=== PATIENT | male | born 1975 | race Caucasian/White ===

== ENCOUNTER 2018-07-14 18:28 | Emergency (ER) | payer MEDICAID ==
[~2018-07-14] VITALS: Ht 185.4 cm; Wt 148.2 kg
[~2018-07-14 18:28] MED LIST: ASPI-1009 PO; AZIT250T PO; CLOT15CR5 TP; GLIM4TAB79 PO; GUAI120015 PO; HYDR-4383 PO; IPRA3AMP31 IH; LOSA25TA96 PO; METF1000 PO; PIOG15TA8 PO; PRAV20TA60 PO; SITA100T15 PO
[2018-07-14 18:39] VITALS: BP 152/91
[2018-07-14] MEDS ORDERED: metoclopramide 5 mg/ml inj IV ONE (18:55)
[2018-07-14] MEDS ORDERED: normal saline 1000ML IV soln IVB ONE (18:55)
[2018-07-14] MEDS ORDERED: diphenhydrAMINE 50 mg/ml inj IV ONE (18:55)
[2018-07-14 18:59] LABS: BASOPHILS % (AUTO) 0.3 % (0-1); EOSINOPHILS # (AUTO) 0.2 X10'3 (0-0.9); EOSINOPHILS % (AUTO) 2.9 % (0-6); HEMATOCRIT 41.2 % (42.0-52.0); HEMOGLOBIN 13.9 g/dl (14.0-17.9); LYMPHOCYTES % (AUTO) 38.1 % (21-51); MEAN CORPUSCULAR HEMOGLOBIN 29.8 PG (27.0-31.0); MEAN CORPUSCULAR HGB CONC 33.7 % (33.0-36.5); MEAN CORPUSCULAR VOLUME 88.5 FL (78-98); MEAN PLATELET VOLUME 7.7 FL (7.4-10.4); MONOCYTES # (AUTO) 0.4 X10'3 (0-0.9); MONOCYTES % (AUTO) 8.4 % (2-12); NEUTROPHILS # (AUTO) 2.7 X10'3 (1.8-7.7); NEUTROPHILS % (AUTO) 50.3 % (42-75); PLATELET COUNT 237 X10'3 (140-440); RED BLOOD COUNT 4.65 X10'6 (4.70-6.10); RED CELL DISTRIBUTION WIDTH 13.5 % (11.5-14.5); WHITE BLOOD COUNT 5.3 X10'3 (4.5-11.0)
[2018-07-14] MEDS ORDERED: ATOR80TA PO (19:08)
[2018-07-14] MEDS ORDERED: LANTUS SQ (19:08)
[2018-07-14 19:21] LABS: ALANINE AMINOTRANSFERASE 30 U/L (12-78); ALBUMIN 3.9 G/DL (3.4-5.0); ALBUMIN/GLOBULIN RATIO 1.3 (1.1-1.5); ALKALINE PHOSPHATASE 54 IU/L (46-116); ANION GAP 12 (8-16); ASPARTATE AMINO TRANSFERASE 16 U/L (10-37); BILIRUBIN,TOTAL 0.6 MG/DL (0.1-1.0); BLOOD UREA NITROGEN 20 MG/DL (7-18); BUN/CREATININE RATIO 17.1 (5.4-32.0); CALCIUM 9.2 MG/DL (8.5-10.1); CHLORIDE 98 MMOL/L (99-107); CREATININE 1.17 MG/DL (0.60-1.10); GLUCOSE 421 MG/DL (70-104); POTASSIUM 4.1 MMOL/L (3.5-5.1); SODIUM 136 MMOL/L (135-145); TOTAL CARBON DIOXIDE 26.1 MMOL/L (24-32); eGFR 68 ML/MIN
[2018-07-14 19:24] LABS: INR 0.9 INR; PARTIAL THROMBOPLASTIN TIME 27 SECONDS (22-32); PROTHROMBIN TIME 9.5 SECONDS (9.0-12.0); TROPONIN I < 0.04 NG/ML (0.0-0.05)
== END 2018-07-14 19:52 | disposition home or self-care (01) ==
LOC: ER 18:28
DX: G43.909 Migraine, unspecified, not intractable, without status migrainosus (principal); E11.9 Type 2 diabetes mellitus without complications; E78.00 Pure hypercholesterolemia, unspecified; I10 Essential (primary) hypertension; J45.909 Unspecified asthma, uncomplicated; G89.29 Other chronic pain; Z98.890 Other specified postprocedural states; Z90.89 Acquired absence of other organs; Z56.0 Unemployment, unspecified; Z88.3 Allergy status to other anti-infective agents; Z88.1 Allergy status to other antibiotic agents; Z79.4 Long term (current) use of insulin; Z79.82 Long term (current) use of aspirin; Z79.899 Other long term (current) drug therapy
CPT/HCPCS: 36415; 70450; 71045; 80053; 82948; 84484; 85025; 85610; 85730; 93005; 96361; 96374; 96375; 99285; J1200; J2765; 96372

== ENCOUNTER 2018-07-16 12:48 | Emergency (ER) | payer MEDICAID ==
[~2018-07-16] VITALS: Ht 185.4 cm; Wt 147.7 kg
[~2018-07-16 12:48] MED LIST changes: +ATOR80TA PO; +LANTUS SQ
[2018-07-16 13:23] VITALS: BP 119/70
[2018-07-16] MEDS ORDERED: SUMAtriptan succ. 6 MG/0.5ml vial SQ ONE (13:30)
[2018-07-16 14:29] LABS: BASOPHILS % (AUTO) 0.3 % (0-1); EOSINOPHILS # (AUTO) 0.2 X10'3 (0-0.9); EOSINOPHILS % (AUTO) 3.9 % (0-6); HEMOGLOBIN 14.2 g/dl (14.0-17.9); LYMPHOCYTES # (AUTO) 1.6 X10'3 (1.1-4.8); LYMPHOCYTES % (AUTO) 29.1 % (21-51); MEAN CORPUSCULAR HEMOGLOBIN 29.2 PG (27.0-31.0); MEAN CORPUSCULAR VOLUME 88.4 FL (78-98); MEAN PLATELET VOLUME 7.9 FL (7.4-10.4); MONOCYTES # (AUTO) 0.4 X10'3 (0-0.9); MONOCYTES % (AUTO) 8.1 % (2-12); NEUTROPHILS # (AUTO) 3.2 X10'3 (1.8-7.7); NEUTROPHILS % (AUTO) 58.6 % (42-75); PLATELET COUNT 222 X10'3 (140-440); RED BLOOD COUNT 4.87 X10'6 (4.70-6.10); RED CELL DISTRIBUTION WIDTH 13.9 % (11.5-14.5); WHITE BLOOD COUNT 5.4 X10'3 (4.5-11.0)
[2018-07-16 14:43] LABS: ALANINE AMINOTRANSFERASE 27 U/L (12-78); ALBUMIN 3.6 G/DL (3.4-5.0); ALBUMIN/GLOBULIN RATIO 1.1 (1.1-1.5); ALKALINE PHOSPHATASE 53 IU/L (46-116); ANION GAP 9 (8-16); ASPARTATE AMINO TRANSFERASE 13 U/L (10-37); BILIRUBIN,TOTAL 0.5 MG/DL (0.1-1.0); BLOOD UREA NITROGEN 19 MG/DL (7-18); BUN/CREATININE RATIO 17.4 (5.4-32.0); CALCIUM 9.2 MG/DL (8.5-10.1); CHLORIDE 97 MMOL/L (99-107); CREATININE 1.09 MG/DL (0.60-1.10); GLUCOSE 445 MG/DL (70-104); POTASSIUM 4.2 MMOL/L (3.5-5.1); SODIUM 134 MMOL/L (135-145); TOTAL CARBON DIOXIDE 27.9 MMOL/L (24-32); eGFR 73 ML/MIN
[2018-07-16] MEDS ORDERED: ketorolac trometh inj. 60 MG/2 ML VIAL IM ONE (15:15)
[2018-07-16] MEDS ORDERED: HYDROcodone/acetaminophen 10/325mg tab PO ONE (15:15)
== END 2018-07-16 15:35 | disposition home or self-care (01) ==
LOC: ER 12:48
DX: G43.909 Migraine, unspecified, not intractable, without status migrainosus (principal); E78.00 Pure hypercholesterolemia, unspecified; I10 Essential (primary) hypertension; J45.909 Unspecified asthma, uncomplicated; E11.9 Type 2 diabetes mellitus without complications; G89.29 Other chronic pain; Z98.890 Other specified postprocedural states; Z56.0 Unemployment, unspecified; Z88.1 Allergy status to other antibiotic agents; Z88.0 Allergy status to penicillin; Z88.8 Allergy status to other drugs, medicaments and biological substances; Z79.82 Long term (current) use of aspirin; Z79.4 Long term (current) use of insulin; Z79.899 Other long term (current) drug therapy
CPT/HCPCS: 36415; 80053; 85025; 96372; 99284; J1885; J3030

== ENCOUNTER 2023-06-21 04:05 | Emergency (ER) | payer MEDICAID ==
[~2023-06-21] VITALS: Ht 185.4 cm; Wt 157.3 kg
[~2023-06-21 04:05] MED LIST changes: -AZIT250T PO; -CLOT15CR5 TP; +GLIM4TAB7 PO; -GLIM4TAB79 PO; -GUAI120015 PO; -HYDR-4383 PO; -IPRA3AMP31 IH; +LOSA-415 PO; -LOSA25TA96 PO; -PRAV20TA60 PO
--- NOTE | 2023-06-21 05:08 | NUR ---
DR. LUNA AT BS, PT ALSO C/O DIZZINESS AND LIGHTHEADED TO MD, STARTING TONIGHT ON WAY TO WORK, AND HAD TO COME HOME FOR TO BRING HIM TO ER
[2023-06-21 05:46] LABS: BASOPHILS # (AUTO) 0.1 X10'3 (0-0.2); EOSINOPHILS # (AUTO) 0.2 X10'3 (0-0.9); EOSINOPHILS % (AUTO) 2.4 % (0-6); HEMATOCRIT 35.1 % (42.0-52.0); HEMOGLOBIN 12.3 g/dl (14.0-17.9); LYMPHOCYTES # (AUTO) 2.2 X10'3 (1.1-4.8); LYMPHOCYTES % (AUTO) 29.8 % (21-51); MEAN CORPUSCULAR HEMOGLOBIN 30.8 PG (27.0-31.0); MEAN CORPUSCULAR VOLUME 87.9 FL (78-98); MEAN PLATELET VOLUME 7.8 FL (7.4-10.4); MONOCYTES # (AUTO) 0.6 X10'3 (0-0.9); MONOCYTES % (AUTO) 7.8 % (2-12); NEUTROPHILS # (AUTO) 4.3 X10'3 (1.8-7.7); PLATELET COUNT 229 X10'3 (140-440); RED BLOOD COUNT 3.99 X10'6 (4.70-6.10); RED CELL DISTRIBUTION WIDTH 14.2 % (11.5-14.5); WHITE BLOOD COUNT 7.3 X10'3 (4.5-11.0)
[2023-06-21 05:58] LABS: ALANINE AMINOTRANSFERASE 48 U/L (12-78); ALBUMIN 2.4 G/DL (3.4-5.0); ALBUMIN/GLOBULIN RATIO 0.8 (1.1-1.5); ALKALINE PHOSPHATASE 50 IU/L (46-116); ANION GAP 1 (8-16); ASPARTATE AMINO TRANSFERASE 35 U/L (10-37); BILIRUBIN,TOTAL 0.4 MG/DL (0.1-1.0); BLOOD UREA NITROGEN 29 MG/DL (7-18); BUN/CREATININE RATIO 19.7 (10.0-20.0); CALCIUM 9.6 MG/DL (8.5-10.1); CHLORIDE 103 MMOL/L (99-107); CREATININE 1.47 MG/DL (0.60-1.10); GLUCOSE 280 MG/DL (70-104); SODIUM 136 MMOL/L (135-145); TOTAL CARBON DIOXIDE 32.2 MMOL/L (24-32); TOTAL PROTEIN 5.3 G/DL (6.4-8.2); eCRCL 69 ML/MIN; eGFR 51 ML/MIN
[2023-06-21 06:05] LABS: PRO BRAIN NATRIURETIC PEPTIDE 754 PG/ML (0-125)
[2023-06-21 06:26] LABS: POTASSIUM 4.4 MMOL/L (3.5-5.1)
[2023-06-21 06:35] VITALS: TEMP 97.8
[2023-06-21 08:41] VITALS: BP 146/83; PULSE 92; RESP 16; O2SAT 95
== END 2023-06-21 08:43 | disposition home or self-care (01) ==
LOC: ER 04:06
DX: R55 Syncope and collapse (principal); E78.00 Pure hypercholesterolemia, unspecified; I10 Essential (primary) hypertension; J45.909 Unspecified asthma, uncomplicated; E11.9 Type 2 diabetes mellitus without complications; G89.29 Other chronic pain; Z72.89 Other problems related to lifestyle; Z56.0 Unemployment, unspecified; Z88.1 Allergy status to other antibiotic agents; Z88.8 Allergy status to other drugs, medicaments and biological substances; Z79.82 Long term (current) use of aspirin; Z79.899 Other long term (current) drug therapy
CPT/HCPCS: 36415; 71045; 80053; 82948; 83880; 84484; 85025; 93005; 99285; J7030

== ENCOUNTER 2023-07-14 12:48 | Outpatient (CLI) | payer MEDICAID ==
[2023-07-14 13:44] LABS: ALBUMIN 3.2 G/DL (3.4-5.0); BLOOD UREA NITROGEN 28 MG/DL (7-18); CHLORIDE 98 MMOL/L (99-107); CREATININE 1.75 MG/DL (0.60-1.10); TOTAL CARBON DIOXIDE 26.9 MMOL/L (24-32); eGFR 42 ML/MIN
[2023-07-14 14:04] LABS: D-DIMER 0.21 MG/L FEU (0-0.50)
[2023-07-14 14:12] LABS: ANION GAP 11 (8-16); POTASSIUM 4.4 MMOL/L (3.5-5.1); SODIUM 136 MMOL/L (135-145)
[2023-07-14 14:15] LABS: GLUCOSE 486 MG/DL (70-104)
== END 2023-07-14 23:59 | disposition home or self-care (01) ==
LOC: LAB 12:48
PROVIDERS: ATTEND Family Medicine
DX: E11.65 Type 2 diabetes mellitus with hyperglycemia (principal); E78.2 Mixed hyperlipidemia; I42.9 Cardiomyopathy, unspecified; K86.89 Other specified diseases of pancreas; R06.02 Shortness of breath
CPT/HCPCS: 36415; 80048; 85379

== ENCOUNTER 2025-03-13 02:39 | Inpatient (IN) | payer MEDICAID ==
[~2025-03-13] VITALS: Ht 185.4 cm; Wt 153.2 kg
[~2025-03-13 02:39] MED LIST changes: +ATOR-429 PO; -ATOR80TA PO
[2025-03-13 03:16] LABS: BASOPHILS % (AUTO) 0.5 % (0-1); EOSINOPHILS # (AUTO) 0.2 X10'3 (0-0.9); EOSINOPHILS % (AUTO) 2.5 % (0-6); HEMATOCRIT 31.9 % (42.0-52.0); HEMOGLOBIN 10.7 g/dl (14.0-17.9); LYMPHOCYTES # (AUTO) 1.5 X10'3 (1.1-4.8); LYMPHOCYTES % (AUTO) 20.6 % (21-51); MEAN CORPUSCULAR HEMOGLOBIN 29.3 PG (27.0-31.0); MEAN CORPUSCULAR HGB CONC 33.6 g/dL (33.0-36.5); MEAN CORPUSCULAR VOLUME 87.4 FL (78-98); MEAN PLATELET VOLUME 7.1 FL (7.4-10.4); MONOCYTES # (AUTO) 0.6 X10'3 (0-0.9); MONOCYTES % (AUTO) 8.5 % (2-12); NEUTROPHILS % (AUTO) 67.9 % (42-75); PLATELET COUNT 236 X10'3 (140-440); RED BLOOD COUNT 3.64 X10'6 (4.70-6.10); RED CELL DISTRIBUTION WIDTH 14.8 % (11.5-14.5); WHITE BLOOD COUNT 7.4 X10'3 (4.5-11.0)
[2025-03-13 03:38] LABS: ALBUMIN 2.9 G/DL (3.4-5.0); ANION GAP 6 (8-16); BLOOD UREA NITROGEN 38 MG/DL (7-18); BUN/CREATININE RATIO 15.6 (10.0-20.0); CALCIUM 9.3 MG/DL (8.5-10.1); CHLORIDE 106 MMOL/L (99-107); CREATININE 2.43 MG/DL (0.60-1.10); GLUCOSE 105 MG/DL (70-104); POTASSIUM 4.1 MMOL/L (3.5-5.1); SODIUM 138 MMOL/L (135-145); THYROID STIMULATING HORMONE 3.05 ulU/ml (0.34-4.50); TOTAL CARBON DIOXIDE 26.3 MMOL/L (24-32); eCRCL 41 ML/MIN; eGFR 28 ML/MIN
[2025-03-13 03:42] LABS: ETHANOL < 10 MG/DL (<10)
--- NOTE | 2025-03-13 03:53 | Physician Documentation ---
History of Present Illness ~ Chief Complaint: Overdose Stated Complaint: DIABETIC COMPLICATIONS Time Seen by MD: 03:46 Primary Medical Doctor: [facility] Patient presents to the emergency room with a suicidal attempt to overdose on insulin. He admits taking both short-acting (Admilog 40u) and long-acting insulin (triciba 80u). By standard gave orange juice and candy bar. EMS his hung D10. Patient initially found have a blood sugar of 87. Medication Reconciliation Allergies: Coded Allergies: doxycycline (Verified Allergy, Intermediate, 03/13/25) amoxicillin (Verified Allergy, Mild, 03/13/25) insulin detemir (Verified Allergy, Unknown, 03/13/25) insulin glargine (Verified Allergy, Unknown, leg swelling, 03/13/25) Uncoded Allergies: SULFA (Allergy, Unknown, swelling, hives, 06/21/23) Scheduled Aspirin (Aspirin), 81 MG PO HS, (Reported) Atorvastatin Calcium* (Lipitor*), 1 TABLET PO HS, (Reported) Glimepiride* (Amaryl*), 8 MG PO DAILY, (Reported) Hydrochlorothiazide (Hydrochlorothiazide), 1 TAB PO DAILY, (Reported) Insulin Glargine,Hum.rec.anlog* (Lantus*), 50 UNITS SQ HS, (Reported) Metformin Hcl* (Glucophage*), 2 TAB PO DAILY, (Reported) Metoprolol Succinate (Metoprolol Succinate), 1 TAB PO HS, (Reported) Pioglitazone Hcl* (Actos*), 1 TAB PO HS, (Reported) Sacubitril/Valsartan (Entresto 97 mg-103 mg Tablet), 1 TAB PO BID, (Reported) Sitagliptin Phosphate* (Januvia*), 1 TAB PO DAILY, (Reported) Spironolactone (Spironolactone), 1 TAB PO BID, (Reported) Discontinued Medications Losartan Potassium* (Cozaar*), 100 MG PO HS, (Reported) Discontinued Reason: patient no longer taking Past Medical History Past Medical History: High Cholesterol, Hypertension, Asthma, Bronchitis, Diabetes, Chronic Back Pain Past Surgical History: orthopedic surgeries, tonsillectomy Alcohol Use: Sober Drug Use: none Lives with: Family Lives In: Home Occupation: unemployed Review of Systems ROS All review of systems negative except as per HPI Physical Exam Vital Signs: Temperature: 97.7, Source: Oral, Heart Rate: 82, Respiratory Rate: 13, BP: 155/69, Pulse Oximetry: 98, Weight: 153.200 Oxygen Flow Rate: 0 Physical Exam General: Patient is awake, alert, oriented x4 in no acute distress Head: Normocephalic and atraumatic. Eyes: Conjunctival normal. EOMI. PERRL. ENT: Mucous membranes moist. Neck: Supple, trachea is midline. Chest: Clear to auscultation bilaterally without rales, rhonchi, or wheezes. There is no accessory muscle use or retractions. Cardiac: RRR without murmurs, gallops, or rubs. Psych: Decreased affect, cooperative, poor eye contact, suicidal Progress Results/Orders Results/Orders Orders - FAISAL GARCIA MD Med Rec (03/13/25 03:04) Covid19 Binax Poc Result Entry (03/13/25 03:04) Completed Orders - FAISAL GARCIA MD Electrocardiogram (03/13/25 02:56) Cbc/Diff (03/13/25 03:04) Drug Screen, Urine (03/13/25 03:04) Ethanol (03/13/25 03:04) TSH (03/13/25 03:04) BMP (03/13/25 03:04) Dextrose 5%-Normal Saline (Dextrose 5%-N (03/13/25 04:05) Ua With Microscopic (03/13/25 06:50) Hgb A1c (03/13/25 03:02) Vital Signs 03/13/25 03/13/25 03/13/25 03/13/25 02:43 03:28 05:04 05:06 Temp 97.7 Pulse 84 82 81 Resp 14 13 20 20 B/P (MAP) 179/83 155/69 (97) 193/95 (127) Pulse Ox 99 98 98 O2 Flow Rate 0 0 Laboratory Tests Test 03/13/25 02:50 03/13/25 03:02 03/13/25 03:14 03/13/25 03:32 Glucometer 148 H 98 White Blood Count 7.4 Red Blood Count 3.64 L Hemoglobin 10.7 L Hematocrit 31.9 L Mean Corpuscular Volume 87.4 Mean Corpuscular Hemoglobin 29.3 Mean Corpuscular Hemoglobin Concent 33.6 Red Cell Distribution Width 14.8 H Platelet Count 236 Mean Platelet Volume 7.1 L Neutrophils (%) (Auto) 67.9 Lymphocytes (%) (Auto) 20.6 L Monocytes (%) (Auto) 8.5 Eosinophils (%) (Auto) 2.5 Basophils (%) (Auto) 0.5 Neutrophils # (Auto) 5.0 Lymphocytes # (Auto) 1.5 Monocytes # (Auto) 0.6 Eosinophils # (Auto) 0.2 Basophils # (Auto) 0.0 CBC Comment Sodium Level 138 Potassium Level 4.1 Chloride Level 106 Carbon Dioxide Level 26.3 Anion Gap 6 L Blood Urea Nitrogen 38 H Creatinine 2.43 H Estimated GFR/1.73 m2 28 BUN/Creatinine Ratio 15.6 Glucose Level 105 H Hemoglobin A1c 7.2 H Calcium Level 9.3 Albumin 2.9 L Thyroid Stimulating Hormone (TSH) 3.05 Chemistry Comments Ethyl Alcohol Level < 10 SARS-CoV-2 Antigen (Rapid) Negative Test 03/13/25 03:45 03/13/25 04:00 03/13/25 04:25 03/13/25 04:42 Glucometer 93 81 89 101 Test 03/13/25 05:03 Glucometer 95 EKG/XRAY/CT/US/VASC/MRI EKG : Additional Comment EKG interpreted by myself shows time of 0258, rate 79, sinus rhythm, left axis deviation, no ST changes Medical Decision Making Findings Patient presented to the emergency room with intentional overdose of insulin. He will require admission for continued monitoring of his sugars. 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 Differential Dx:Considerations: Include: Alcohol abuse, Bipolar disorder, Depression, Drug Overdose-Accidental, Drug Overdose-Intentional, Personality disorder, Substance abuse, Suicidal attempt Departure Admitted to Inpatient Unit: yes, to sales promotion officer Impression: Primary Impression: Suicidal ideation Additional Impression: Intentional overdose of insulin Condition: Critical Referrals: NO PRIMARY CARE PROVIDER (PCP) Critical Care Note Total Time (mins): 59 Critical Care Note The very real possibility of a deterioration of this patient's condition required the highest level of my preparedness for sudden, emergent intervention. I provided critical care services, which included medication orders, frequent reevaluations of the patient's condition and response to treatment, ordering and reviewing test results, and discussing the case with various consultants. Excludes time spent performing separately billable procedures. The critical care time associated with the care of the patient was 59 minutes not counting procedures Signature Scribe Signature: No scribe Attestation: The note accurately reflects work and decisions made by me.Faisal Garcia MD 03/13/25 03:55 FAISAL GARCIA MD Mar 13, 2025 03:53
[2025-03-13] MEDS: dextrose 5%-normal saline 1,000 ML IV ONE (04:11)
[2025-03-13] MEDS ORDERED: morphine 4 MG/ML inj SYRINge IV PRN (05:25)
[2025-03-13] MEDS ORDERED: morphine 2 MG/ML inj. syringe IV PRN (05:25)
[2025-03-13] MEDS ORDERED: ondansetron/PF 4mg/2ml inj IV PRN (05:25)
[2025-03-13] MEDS ORDERED: acetaminophen 325mg tablet PO PRN ×2 (05:25)
--- NOTE | 2025-03-13 05:39 | HISTORY AND PHYSICAL ---
History & Physical - Short Providers to CC ~ History of Present Illness Chief Complain & History 49M diabetes depression obesity took approximately 120 units of regular insulin at 11pm 03/12 and another 20 units of regular a few hours later in an attempted suicide. No other ingestions. Being admitted for hypoglycemia and SI. Asked to admit to ICU given a need for a D10 drip in order to keep blood glucose >80. Allergies: Coded Allergies: doxycycline (Verified Allergy, Intermediate, 03/13/25) amoxicillin (Verified Allergy, Mild, 03/13/25) insulin detemir (Verified Allergy, Unknown, 03/13/25) insulin glargine (Verified Allergy, Unknown, leg swelling, 03/13/25) Uncoded Allergies: SULFA (Allergy, Unknown, swelling, hives, 06/21/23) Home Medications Home Medications Active Reported Lantus* (Insulin Glargine) 100 Unit/1 Ml Vial 50 Units SQ HS Lipitor* (Atorvastatin Calcium) 80 Mg Tablet 1 Tablet PO HS Actos* (Pioglitazone HCl) 15 Mg Tablet 1 Tab PO HS Januvia* (Sitagliptin Phosphate*) 100 Mg Tablet 1 Tab PO DAILY Glucophage* (Metformin HCl) 1,000 Mg Tablet 2 Tab PO DAILY Cozaar* (Losartan Potassium) 25 Mg Tablet 100 Mg PO HS Aspirin 81 Mg Tablet.dr 81 Mg PO HS Amaryl* (Glimepiride) 4 Mg Tablet 8 Mg PO DAILY Exam Last recorded Lab results: 03/13/25 0302 03/13/25 0302 Vitals: Vital Signs Date Time Temp Pulse Resp B/P (MAP) Pulse Ox O2 Delivery O2 Flow Rate FiO2 03/13/25 05:06 20 03/13/25 05:04 81 98 03/13/25 03:28 0 03/13/25 02:43 97.7 Cardiac: Exam limited to remote assessment. Obese male awake and alert in NAD on RA. Flat affect. Advance Care Planning Advanced Care planning: N/A Problem\Assessment\Plan Additional Plan Impression: Hypoglycemia due to insulin administration Suicide attempt Depression CKD Obesity Rec: Cont D10 1/2 NS at 100cc/hr for now. Cont hourly and PRN blood glucose with hypoglycemia protocol as needed. Psych consult. Reconcile home meds. Enoxaparin for VTE proph. Admit ICU for now. Plan reviewed with bedside team. Patient seen through remote audiovisual assessment through HIPAA compliant setup. All labs, flowsheets, and images reviewed Cumulative nonprocedural care time spent in directed patient care = 60 min BUSTER ALEXANDER MD Mar 13, 2025 05:39
[2025-03-13] MEDS: DEXTROSE 10 % AND 0.45 % NACL 1,000 ML IV SCH (06:46)
[2025-03-13 07:07] LABS: BILIRUBIN,URINE NEGATIVE (Neg); CLARITY,URINE SLIGHTLY CLOUDY (Clear); COLOR,URINE YELLOW (Yellow); GLUCOSE, URINE 100 mg/dl (Neg); KETONES,URINE NEGATIVE (Neg); LEUKOCYTE ESTERASE ,URINE NEGATIVE (Neg); NITRITES, URINE NEGATIVE (Neg); OCCULT BLOOD,URINE TRACE-INTACT (Neg); PROTEIN,URINE >=300 mg/dl (Neg); UROBILINOGEN,URINE 0.2 E.U/dL (0.2-1.0)
[2025-03-13 07:24] LABS: URINE AMPHETAMINE SCREEN NEGATIVE (Neg); URINE BARBITUATE SCREEN NEGATIVE (Neg); URINE BENZODIAZEPINES SCREEN NEGATIVE (Neg); URINE CANNABINOID SCREEN NEGATIVE (Neg); URINE COCAINE SCREEN NEGATIVE (Neg); URINE METHADONE SCREEN NEGATIVE (Neg); URINE OPIATE SCREEN NEGATIVE (Neg); URINE PHENCYCLIDINE SCREEN NEGATIVE (Neg)
[2025-03-13 07:26] LABS: UA COLLECTION TYPE NON-SPECIFIED
[2025-03-13 07:28] LABS: AMORPHOUS URATES 2+; BACTERIA,URINE NONE SEEN /HPF (Neg); RBC,URINE NONE SEEN /HPF (0-2); SQUAMOUS EPITHELIAL CELL,UR NONE SEEN /LPF (FEW); WBC,URINE 0-4 /HPF (0-4)
[2025-03-13 07:29] LABS: COARSE GRANULAR CAST 0-3 /LPF (NEGATIVE); FINE GRANULAR CAST 0-3 /LPF (NEGATIVE); HYALINE CASTS 0-3 /LPF (NEGATIVE)
[2025-03-13 07:30] LABS: MUCUS STRANDS FEW /LPF (Neg)
--- NOTE | 2025-03-13 07:38 | ELECTROCARDIOGRAPH REPORT ---
[facility] Test Date: 2025-03-13 Test Time: 02:58:29 Pat Name: ROBYN PENA Department: EMERGENCY ROOM Room: [place] [id number] Gender: M Installation And Service Technician: : 1975 Requested By: CALLIE LUNA Order Number: [id number] Reading MD: Dr. Hill Holden Measurements Intervals [place] Rate: 79 P: 60 MA: 160 QRS: -81 QRSD: 124 T: 44 QT: 398 QTc: 457 Interpretive Statements Sinus rhythm Nonspecific IVCD with LAD Baseline wander in lead(s) V3 Electronically Signed On 03-15-2025 18:34:[address] Hill Holden Please click the below link to view image of tracing.
[2025-03-13] MEDS: enoxaparin 40mg/0.4ml syringe SUBCUT SCH (07:57)
[2025-03-13] MEDS ORDERED: glucagon, human recombinant 1mg kit SUBCUT PRN (13:35)
[2025-03-13] MEDS ORDERED: DEXTROSE 15 GM of carb/4 tabs (each vial/BOTTLE has 4 tablets) PO PRN ×2 (13:35)
[2025-03-13] MEDS ORDERED: dextrose 50%-water 50ml dispensing syringe IV PRN ×2 (13:35)
[2025-03-13 14:00] LABS: HEMOGLOBIN A1C 7.2 % (4.5-6.2)
[2025-03-13 15:00] VITALS: BP 154/89; PULSE 77; RESP 16; TEMP 97.6; O2SAT 98
[2025-03-13 18:00] VITALS: BP 154/89; PULSE 77; RESP 16; TEMP 97.6; O2SAT 98
[2025-03-13] MEDS ORDERED: SPIR50TA5 PO (19:52)
[2025-03-13] MEDS ORDERED: SACU1TAB4 PO (19:52)
[2025-03-13] MEDS ORDERED: HYDR12.55 PO (19:52)
[2025-03-13] MEDS ORDERED: METO-384 PO (19:52)
[2025-03-13] MEDS: losartan 50mg tablet PO SCH (19:53)
[2025-03-13] MEDS: aspirin 81mg, enteric-coated 1 TAB TABLET.DR PO SCH (19:53)
[2025-03-13] MEDS: atorvastatin 20mg tablet PO SCH (19:54)
[2025-03-13 20:00] VITALS: RESP 20; O2SAT 97
[2025-03-13 22:00] VITALS: BP 178/82; PULSE 81; RESP 18; TEMP 97.8; O2SAT 97
[2025-03-13] MEDS: amLODIPine 5mg tablet PO ONE (23:17)
[2025-03-13] MEDS: spironolactone 50 MG tablet PO ONE (23:55)
[2025-03-14] VITALS (9 sets, daily range): BP systolic 142–168; BP diastolic 53–96; PULSE 71–98; RESP 12–22; TEMP 97–98; O2SAT 96–98
[2025-03-14] MEDS: HYDROchlorothiazide 12.5mg capsule PO ONE (02:34)
[2025-03-14 06:04] LABS: BASOPHILS % (AUTO) 0.5 % (0-1); EOSINOPHILS # (AUTO) 0.2 X10'3 (0-0.9); HEMATOCRIT 30.8 % (42.0-52.0); HEMOGLOBIN 10.5 g/dl (14.0-17.9); LYMPHOCYTES # (AUTO) 2.2 X10'3 (1.1-4.8); LYMPHOCYTES % (AUTO) 28.6 % (21-51); MEAN CORPUSCULAR HGB CONC 34.2 g/dL (33.0-36.5); MEAN CORPUSCULAR VOLUME 87.8 FL (78-98); MEAN PLATELET VOLUME 7.1 FL (7.4-10.4); MONOCYTES # (AUTO) 0.6 X10'3 (0-0.9); MONOCYTES % (AUTO) 7.7 % (2-12); NEUTROPHILS # (AUTO) 4.5 X10'3 (1.8-7.7); NEUTROPHILS % (AUTO) 60.2 % (42-75); PLATELET COUNT 245 X10'3 (140-440); RED BLOOD COUNT 3.51 X10'6 (4.70-6.10); RED CELL DISTRIBUTION WIDTH 14.7 % (11.5-14.5); WHITE BLOOD COUNT 7.5 X10'3 (4.5-11.0)
[2025-03-14 06:27] LABS: ALBUMIN 2.8 G/DL (3.4-5.0); ANION GAP 8 (8-16); BLOOD UREA NITROGEN 41 MG/DL (7-18); BUN/CREATININE RATIO 16.9 (10.0-20.0); CALCIUM 8.6 MG/DL (8.5-10.1); CHLORIDE 107 MMOL/L (99-107); CREATININE 2.42 MG/DL (0.60-1.10); GLUCOSE 95 MG/DL (70-104); POTASSIUM 4.3 MMOL/L (3.5-5.1); SODIUM 140 MMOL/L (135-145); TOTAL CARBON DIOXIDE 24.7 MMOL/L (24-32); eCRCL 41 ML/MIN; eGFR 29 ML/MIN
[2025-03-14] MEDS ORDERED: SACUBITRIL PO SCH (08:00)
[2025-03-14] MEDS ORDERED: VALSARTAN PO SCH (08:00)
[2025-03-14] MEDS ORDERED: sacubitril/valsartan 49mg-51mg tablet PO ONE (08:10)
[2025-03-14] MEDS: HYDROchlorothiazide 12.5mg capsule PO SCH (08:57)
[2025-03-14] MEDS: sacubitril/valsartan 49mg-51mg tablet PO ONE (08:57)
[2025-03-14] MEDS: spironolactone 50 MG tablet PO SCH (08:57)
--- NOTE | 2025-03-14 17:27 | PROGRESS NOTE- Residence ---
Progress Note - Resident Providers to CC Resident Creating Document: MARLIN COYLE RES ~ Antibiotic Timeout Antibiotic Ordered?: No Subjective Patient seen and examined at bedside. No acute overnight events noted. No new concerns or complaints. Objective Vital Signs Date Time Temp Pulse Resp B/P (MAP) Pulse Ox O2 Delivery O2 Flow Rate FiO2 03/14/25 15:00 98.0 98 14 142/81 (101) 97 Room Air 03/13/25 16:06 0 Result Diagram: 03/14/25 0533 03/14/25 0533 General: Awake and Alert, no acute distress. HEENT: Conjunctiva pink, Sclera clear, Mucus Membranes moist. Neck: Supple without masses and tenderness. Resp: Unlabored. Equal breath sounds bilaterally. Heart: Regular rhythm, normal S1 and S2, no rub, murmur or gallop. Abdomen: Soft and non tender no organomegaly. Normal bowel sounds x4 quadrant normoactive. No guarding or rigidity. Extremities: Normal ROM, no swelling, nontender. No cyanosis,clubbing or edema. 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 Skin: Warm and Dry. Assessment Assessment 49-year-old male with history of diabetes type 2 on insulin presented to the ED with complaints of suicidal ideation after overdosing on insulin. Plan Plan Suicidal ideation Overdose on insulin Hypoglycemia His last blood sugar 267 Started him on the hyper hypoglycemia protocol Long-acting 10 units subQ HS and low-dose sliding scale Patient is on 1799 hold, need sitter Once medically stable he will need to be cleared by Mental health History of CKD Obesity Code Status: Full code DVT prophylaxis: Lovenox Analgesia/sedation: None Line/tube: PIV GI prophylaxis: None Nutrition: Carb controlled Prognosis: Guarded Disposition: Continue medical management Marlin Coyle MD. IM Resident PGY-2 Date of Service: Mar 14, 2025 Billing Provider: SCOTT COBB MD Common Visit Codes: [id number] INP/OBS CARE(HIGH) MARLIN COYLE RES Mar 14, 2025 17:27 SCOTT COBB MD Mar 14, 2025 21:12
[2025-03-14] MEDS ORDERED: sacubitril/valsartan 49mg-51mg tablet PO SCH (20:00)
[2025-03-14] MEDS: insulin glargine (Lantus) pen - multi-dose SQ SCH (21:00)
[2025-03-14] MEDS: metoprolol succinate 25mg (24-HOUR) SR. Tablet PO SCH (21:14)
[2025-03-14] MEDS: INSULIN LISPRO 100 UNIT/ML INSULN.PEN MULTI-DOSE SQ SCH (21:28)
[2025-03-15 02:00] VITALS: BP 135/88; PULSE 88; RESP 17; TEMP 97.4; O2SAT 98
[2025-03-15] MEDS ORDERED: bisacodyl 10mg suppository rectal RC PRN (05:25)
[2025-03-15 06:00] VITALS: BP 132/70; PULSE 70; RESP 12; TEMP 97.7; O2SAT 98
[2025-03-15 06:40] LABS: BASOPHILS # (AUTO) 0.1 X10'3 (0-0.2); BASOPHILS % (AUTO) 0.6 % (0-1); EOSINOPHILS # (AUTO) 0.3 X10'3 (0-0.9); EOSINOPHILS % (AUTO) 3.6 % (0-6); HEMATOCRIT 28.9 % (42.0-52.0); LYMPHOCYTES # (AUTO) 2.8 X10'3 (1.1-4.8); MEAN CORPUSCULAR HEMOGLOBIN 30.2 PG (27.0-31.0); MEAN CORPUSCULAR HGB CONC 34.5 g/dL (33.0-36.5); MEAN CORPUSCULAR VOLUME 87.4 FL (78-98); MEAN PLATELET VOLUME 7.2 FL (7.4-10.4); MONOCYTES % (AUTO) 11.5 % (2-12); NEUTROPHILS # (AUTO) 4.4 X10'3 (1.8-7.7); NEUTROPHILS % (AUTO) 51.3 % (42-75); PLATELET COUNT 228 X10'3 (140-440); RED CELL DISTRIBUTION WIDTH 14.5 % (11.5-14.5); WHITE BLOOD COUNT 8.5 X10'3 (4.5-11.0)
[2025-03-15 06:58] LABS: ALBUMIN 2.7 G/DL (3.4-5.0); BLOOD UREA NITROGEN 56 MG/DL (7-18); BUN/CREATININE RATIO 22.4 (10.0-20.0); CALCIUM 8.6 MG/DL (8.5-10.1); CHLORIDE 107 MMOL/L (99-107); GLUCOSE 146 MG/DL (70-104); SODIUM 137 MMOL/L (135-145); eCRCL 40 ML/MIN; eGFR 27 ML/MIN
[2025-03-15 07:09] LABS: ANION GAP 5 (8-16); TOTAL CARBON DIOXIDE 25.5 MMOL/L (24-32)
[2025-03-15 08:00] VITALS: RESP 12; O2SAT 98
[2025-03-15 11:00] VITALS: BP 136/59; PULSE 71; RESP 15; TEMP 98; O2SAT 97
[2025-03-15 15:00] VITALS: BP 129/80; PULSE 76; RESP 16; TEMP 98.3; O2SAT 98
--- NOTE | 2025-03-15 18:41 | DISCHARGE SUMMARY-Residence ---
Discharge Summary Providers to Resident Creating Document: CRESCENCIO COYLE RES ~ Discharge Summary Admission Diagnosis: HYPOGLYCEMIA Hospital Course DATE OF ADMISSION: 03/13/2025 DATE OF DISCHARGE: 03/15/2025 Hospital course same as mentioned discharge summary. Discharge Diagnosis\Comment: Suicidal ideation Overdose on insulin Hypoglycemia History of CKD Obesity Operations\Procedures: None Consultants: Mental health Complications: None Condition on DC: Stable Continued Medications: Aspirin (Aspirin) 81 Mg Tablet.dr 81 MG PO HS Atorvastatin Calcium* (Lipitor*) 80 Mg Tablet 1 TABLET PO HS, TABLET Glimepiride* (Amaryl*) 4 Mg Tablet 8 MG PO DAILY Hydrochlorothiazide (Hydrochlorothiazide) 12.5 Mg Tablet 1 TAB PO DAILY for 30 Days, #30 TAB 0 Refills Insulin Glargine,Hum.rec.anlog* (Lantus*) 100 Unit/1 Ml Vial 50 UNITS SQ HS, VIAL Metformin Hcl* (Glucophage*) 1,000 Mg Tablet 2 TAB PO DAILY, TAB Metoprolol Succinate (Metoprolol Succinate) 50 Mg Tab.sr.24h 1 TAB PO HS Pioglitazone Hcl* (Actos*) 15 Mg Tablet 1 TAB PO HS, TAB Sacubitril/Valsartan (Entresto 97 mg-103 mg Tablet) 97 Mg-103 Mg Tablet 1 TAB PO BID Sitagliptin Phosphate* (Januvia*) 100 Mg Tablet 1 TAB PO DAILY, TAB Spironolactone (Spironolactone) 50 Mg Tablet 1 TAB PO BID Discharge Summary: As per HPI: 49M diabetes depression obesity took approximately 120 units of r egular insulin at 11pm 03/12 and another 20 units of regular a few hours later in an attempted suicide. No other ingestions. Being admitted for hypoglycemia and SI. Asked to admit to ICU given a need for a D10 drip in order to keep blood glucose >80. Hospital course: On further evaluation blood glucose on admission 95. He was placed on the 1799 hold. He states that he overdose on insulin as he lost writes with his daughter. Encouraged him to eat and monitor his blood sugars hourly. Started him on the hyper hypoglycemia protocol as he started eating. His blood sugars have been stable and he was medically cleared. Mental health has been evaluated him and have cleared him for discharge. His hospital course is uncomplicated he is hemodynamically stable on the day of discharge and his physical exam is as follows: General: Awake and Alert, no acute distress. HEENT: Conjunctiva pink, Sclera clear, Mucus Membranes moist. Neck: Supple without masses and tenderness. Resp: Unlabored. Equal breath sounds bilaterally. Heart: Regular rhythm, normal S1 and S2, no rub, murmur or gallop. Abdomen: Soft and non tender no organomegaly. Normal bowel sounds x4 quadrant normoactive. No guarding or rigidity. Extremities: Normal ROM, no swelling, nontender. No cyanosis,clubbing or edema. 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 Skin: Warm and Dry. Discharge medications can be found above. Patient is being discharged with the following advice: Follow up with PCP within a week. Continue diabetes medications with the regular a.c. HS checks and regulate insulin as per glucose levels. Hold insulin for blood glucose less than 70 and regulate insulin dose based on blood glucose levels. Follow up with psychiatrist within two weeks. If condition worsens call 911 or go to the nearest ER immediately. Laboratory Tests Test 03/13/25 20:09 03/13/25 22:36 03/14/25 01:01 03/14/25 02:24 Glucometer 110 mg/dl 186 mg/dl 139 mg/dl 108 mg/dl Test 03/14/25 05:05 03/14/25 05:33 03/14/25 07:11 03/14/25 12:46 Glucometer 84 mg/dl 115 mg/dl 216 mg/dl White Blood Count 7.5 X10'3 Red Blood Count 3.51 X10'6 Hemoglobin 10.5 g/dl Hematocrit 30.8 % Mean Corpuscular Volume 87.8 FL Mean Corpuscular Hemoglobin 30.0 PG Mean Corpuscular Hemoglobin Concent 34.2 g/dL Red Cell Distribution Width 14.7 % Platelet Count 245 X10'3 Mean Platelet Volume 7.1 FL Neutrophils (%) (Auto) 60.2 % Lymphocytes (%) (Auto) 28.6 % Monocytes (%) (Auto) 7.7 % Eosinophils (%) (Auto) 3.0 % Basophils (%) (Auto) 0.5 % Neutrophils # (Auto) 4.5 X10'3 Lymphocytes # (Auto) 2.2 X10'3 Monocytes # (Auto) 0.6 X10'3 Eosinophils # (Auto) 0.2 X10'3 Basophils # (Auto) 0.0 X10'3 CBC Comment Sodium Level 140 MMOL/L Potassium Level 4.3 MMOL/L Chloride Level 107 MMOL/L Carbon Dioxide Level 24.7 MMOL/L Anion Gap 8 Blood Urea Nitrogen 41 MG/DL Creatinine 2.42 MG/DL Estimated GFR/1.73 m2 29 ML/MIN BUN/Creatinine Ratio 16.9 Glucose Level 95 MG/DL Calcium Level 8.6 MG/DL Albumin 2.8 G/DL Chemistry Comments Test 03/14/25 16:58 03/14/25 21:23 03/15/25 06:12 03/15/25 07:16 Glucometer 267 mg/dl 232 mg/dl 127 mg/dl White Blood Count 8.5 X10'3 Red Blood Count 3.30 X10'6 Hemoglobin 10.0 g/dl Hematocrit 28.9 % Mean Corpuscular Volume 87.4 FL Mean Corpuscular Hemoglobin 30.2 PG Mean Corpuscular Hemoglobin Concent 34.5 g/dL Red Cell Distribution Width 14.5 % Platelet Count 228 X10'3 Mean Platelet Volume 7.2 FL Neutrophils (%) (Auto) 51.3 % Lymphocytes (%) (Auto) 33.0 % Monocytes (%) (Auto) 11.5 % Eosinophils (%) (Auto) 3.6 % Basophils (%) (Auto) 0.6 % Neutrophils # (Auto) 4.4 X10'3 Lymphocytes # (Auto) 2.8 X10'3 Monocytes # (Auto) 1.0 X10'3 Eosinophils # (Auto) 0.3 X10'3 Basophils # (Auto) 0.1 X10'3 CBC Comment Sodium Level 137 MMOL/L Potassium Level 5.0 MMOL/L Chloride Level 107 MMOL/L Carbon Dioxide Level 25.5 MMOL/L Anion Gap 5 Blood Urea Nitrogen 56 MG/DL Creatinine 2.50 MG/DL Estimated GFR/1.73 m2 27 ML/MIN BUN/Creatinine Ratio 22.4 Glucose Level 146 MG/DL Calcium Level 8.6 MG/DL Albumin 2.7 G/DL Chemistry Comments Test 03/15/25 11:53 Glucometer 171 mg/dl *Problems/Diagnosis: (1) Intentional overdose of insulin Status: Acute Total Time Spent on D/C: > 30 Minutes Date of Service: Mar 15, 2025 Billing Provider: SCOTT COBB MD Common Visit Codes: 59318-[id number] DISCH DAY >30min CRESCENCIO COYLE, RES Mar 15, 2025 18:41 SCOTT COBB MD Mar 15, 2025 21:20
== END 2025-03-15 18:30 | disposition home or self-care (01) | DRG 817 ==
LOC: ER 02:39 → ED HOLD 05:31 → EDBEDREQ 16:33 → PCU 3S 16:52
PROVIDERS: ADMIT Internal Medicine Critical Care Medicine; ATTEND Internal Medicine Critical Care Medicine
DX: T38.3X2A Poisoning by insulin and oral hypoglycemic [antidiabetic] drugs, intentional self-harm, initial encounter (principal); E11.649 Type 2 diabetes mellitus with hypoglycemia without coma; R45.851 Suicidal ideations; E11.22 Type 2 diabetes mellitus with diabetic chronic kidney disease; E78.00 Pure hypercholesterolemia, unspecified; J45.909 Unspecified asthma, uncomplicated; F32.A Depression, unspecified; I12.9 Hypertensive chronic kidney disease with stage 1 through stage 4 chronic kidney disease, or unspecified chronic kidney disease; Z20.822 Contact with and (suspected) exposure to COVID-19; N18.9 Chronic kidney disease, unspecified; E66.9 Obesity, unspecified; Z88.0 Allergy status to penicillin; Y92.89 Other specified places as the place of occurrence of the external cause; Z88.1 Allergy status to other antibiotic agents; Z88.2 Allergy status to sulfonamides; Z79.84 Long term (current) use of oral hypoglycemic drugs; Z79.4 Long term (current) use of insulin; Z79.899 Other long term (current) drug therapy; Z68.41 Body mass index [BMI] 40.0-44.9, adult
CPT/HCPCS: 36415; 80048; 80305; 80320; 81001; 82948; 83036; 84443; 85025; 87081; 87811; 93005; 96360; 97116; 97161; 97530; 99291; G0378; J1650; J1815; J3490; J7042